=== PATIENT | female | born 1990 | race African-American/Black ===

== ENCOUNTER 2016-11-21 22:32 | Emergency (ER) | payer OTHER ==
[~2016-11-21] VITALS: Ht 160 cm; Wt 77.0 kg
[2016-11-21 23:47] VITALS: BP 127/77
== END 2016-11-22 01:45 | disposition left against medical advice (07) ==
LOC: ER 22:32
DX: R10.32 Left lower quadrant pain (principal); Z53.21 Procedure and treatment not carried out due to patient leaving prior to being seen by health care provider